=== PATIENT | male | born 1985 | race Caucasian/White ===

== ENCOUNTER 2023-05-01 23:17 | Emergency (ER) | payer OTHER ==
[~2023-05-01] VITALS: Ht 187.9 cm; Wt 90.7 kg
[2023-05-01 23:17] VITALS: BP 158/98
--- NOTE | 2023-05-01 23:29 | ED General ---
General Chief Complaint: Medical Screening Exam Stated Complaint: MED CLEARANCE Source of Information: Patient Exam Limitations: No Limitations History of Present Illness Date Seen by Provider: May 01, 2023 Time Seen by Provider: 23:21 Initial Comments 38-year-old male with past medical history of GERD coming in for a medical screening exam by crime prevention police officer before he goes to assisted. The patient has no complaints at this time, no pain, nausea, vomiting, fever, chest pain, shortness of breath, abdominal pain, weakness, numbness, fever, or any other concerns. Allergies and Home Medications Allergies Coded Allergies: No Known Drug Allergies (Unverified , 05/01/23) Patient Home Medication List Home Medication List Reviewed: Yes Review of Systems Review of Systems Constitutional: No fever EENTM: no symptoms reported Respiratory: no symptoms reported Cardiovascular: no symptoms reported Gastrointestinal: no symptoms reported Genitourinary: no symptoms reported Musculoskeletal: no symptoms reported Skin: no symptoms reported Psychiatric/Neurological: No Symptoms Reported Hematologic/Lymphatic: No Symptoms Reported Immunological/Allergic: no symptoms reported Past Wseksfz-[id number]-Tdgzmo Hx Past Medical History Surgeries: Yes Orthopedic Physical Exam Vital Signs Vital Signs - First Documented 05/01/23 23:17 Temp 37.0 Pulse 117 Resp 16 B/P (MAP) 158/98 (118) Pulse Ox 100 O2 Delivery Room Air Capillary Refill : Height, Weight, BMI Height: '" Weight: lbs. oz. kg; BMI Method: General Appearance: No Apparent Distress, WD/WN Eyes: Bilateral Eye Normal Inspection HEENT: PERRL/EOMI, Normal ENT Inspection, Pharynx Normal Neck: Full Range of Motion, Normal Inspection, Non Tender, Supple Respiratory: Chest Non Tender, Lungs Clear, Normal Breath Sounds, No Accessory Muscle Use, No Respiratory Distress Cardiovascular: Regular Rate, Rhythm, No Edema, Normal Peripheral Pulses Gastrointestinal: Normal Bowel Sounds, Non Tender, Soft; No Distended, No Guarding Back: Normal Inspection, No CVA Tenderness, No Vertebral Tenderness Extremity: Normal Capillary Refill, Normal Inspection, Normal Range of Motion, Non Tender, No Calf Tenderness, No Pedal Edema Neurologic/Psychiatric: Alert, No Motor/Sensory Deficits, Normal Mood/Affect Skin: Normal Color, Warm/Dry Progress/Results/Core Measures Suspected Sepsis SIRS Temperature: Pulse: Respiratory Rate: Blood Pressure / Mean: Results/Orders Vital Signs/I&O 05/01/23 23:17 Temp 37.0 Pulse 117 Resp 16 B/P (MAP) 158/98 (118) Pulse Ox 100 O2 Delivery Room Air Capillary Refill : Progress Note : Progress Note 38-year-old male with above history coming in for medical screening exam before going to assisted. ABCs were intact and vitals are stable on presentation. He has no complaints at this time and objectively has no concerns on physical exam. I believe he is stable for discharge with outpatient follow-up. He was discharged with strict return precautions. Departure Impression Primary Impression: Encounter for medical screening examination Disposition: [address]/LAW ENFORCE Condition: Stable Departure-Patient Inst. Decision time for Depature: 23:30 Patient Instructions: OUTPT MENTAL HEALTH SERVICES Add. Discharge Instructions: Follow back up with your regular doctor if you have any concerns. You are medical cleared for incarceration. WANG ROSE MD May 01, 2023 23:29
== END 2023-05-01 23:32 ==
LOC: ER FS 23:23
DX: Z02.89 Encounter for other administrative examinations (principal); Z28.310 Unvaccinated for COVID-19
CPT/HCPCS: 99283